=== PATIENT | female | born 1980 | race Caucasian/White ===

== ENCOUNTER 2021-07-05 01:04 | Emergency (ER) | payer BC ==
[2021-07-05 02:21] LABS: CORONAVIRUS COVID-19 NAA POSITIVE (NEGATIVE); INFLUENZA A NAA NEGATIVE (NEGATIVE); INFLUENZA B NAA NEGATIVE (NEGATIVE); RESPIRATORY SYNCYTIAL VIR NAA NEGATIVE (NEGATIVE)
== END 2021-07-05 03:38 | disposition home or self-care (01) ==
LOC: MW.ED 01:04
DX: U07.1 COVID-19 (principal); Z88.5 Allergy status to narcotic agent; Z79.899 Other long term (current) drug therapy
CPT/HCPCS: 0241U; 87651; 99283